=== PATIENT | female | born 1930 | race Caucasian/White ===

== ENCOUNTER → 2017-12-13 | Outpatient (CLI) | payer MEDICARE, OTHER | END | disposition home or self-care (01) | LOC: HKI 10:27 | DX: M17.0 Bilateral primary osteoarthritis of knee (principal); M70.61 Trochanteric bursitis, right hip; I10 Essential (primary) hypertension; Z88.0 Allergy status to penicillin | CPT/HCPCS: 20610; 73502; 73562-50 ==